=== PATIENT | male | born 1945 | race Caucasian/White ===

== ENCOUNTER 2017-08-26 12:19 | Inpatient (IN) | payer OTHER ==
[~2017-08-26] VITALS: Ht 182.8 cm; Wt 118.6 kg
--- NOTE | ~2017-08-26 | EKG ---
[place], [place] ELECTROCARDIOGRAM REPORT NAME: CAROLYN ROCHE UNIT #: [id number] ROOM: 528 DOCTOR: СЕРГЕЙ DRAFT REPORT BIRTHDATE: [birth year] [facility] Test Date: 2017-08-26 Test Time: 12:25:51 Pat Name: CAROLYN ROCHE Department: Room: Gender: Supervisor [employer]: : [id number] Requested By: GIL GRUBBS Order Number: [id number] Reading MD: Jose Coffman MD Measurements Intervals [place] Rate: 80 P: 24 NM: 200 QRS: -4 QRSD: 101 T: 30 QT: 371 QTc: 428 Interpretive Statements Sinus rhythm Baseline wander in lead(s) V5 Electronically Signed On 08-26-2017 12:53:58 PDT by Jose Coffman MD CM:EKGRPT:ELECTROCARDIOGRAM REPORT [id number] GIL INIGUEZ DRAFT REPORT GIL GRUBBS DO
[~2017-08-26 12:19] MED LIST: ALENDRONATE SOD70 M1 PO; ALLOPURINOL100 MG PO; ASPI-COR81 M1 PO; BUSPIRONE10 MG PO; DIFLUCAN100 MG PO; DIVALPROEX SOD250 M1 PO; FINASTERIDE5 MG PO; GLUCOPHAGE1000 MG PO; GLYBURIDE5 MG PO; ICAPS MV TABLE1 EACH PO; KEFLEX500 M1 PO; LASIX20 MG PO; LEVOTHYROXIN0.025 MG PO; LIDODERM 5% PATC1 EA PO; LISINOPRIL20 MG PO; LISINOPRIL40 MG PO; MOTRIN600 MG PO; MOTRIN800 MG PO; NEURONTIN400 MG PO; NOVOLOG10 ML SC; OMEPRAZOLE DR20 MG PO; OPTIVE SENSITI0.4 ML OP; PERCOCET 325 MG1 TA2 PO; POTASSIUM CHLO10 ME5 PO; PRAZOSIN HCL2 MG PO; SERTRALINE HCL100 MG PO; SIMVASTATIN80 MG PO; TRAMADOL HCL50 MG PO
[2017-08-26 12:26] VITALS: BP 121/61
[2017-08-26 13:01] LABS: ACT PARTIAL THROMBO TIME 19.1 SECONDS (20.8-31.5); INTERNATIONAL NORM RATIO 0.9 (2.0-3.5)
[2017-08-26 13:08] VITALS: BP 112/63
[2017-08-26 13:08] LABS: ALBUMIN 3.7 gm/dl (3.1-4.5); ALKALINE PHOSPHATASE 84 U/L (45-117); BUN 21 mg/dl (7-24); CHLORIDE 111 mmol/L (98-107); CREATININE 1.14 mg/dL (0.70-1.30); LIPASE 209 U/L (73-393); POTASSIUM 4.7 mmol/L (3.5-5.1); SGOT/AST 13 IU/L (3-35); SGPT/ALT 20 U/L (12-78); SODIUM 142 mmol/L (136-145); TOTAL PROTEIN 7.3 gm/dL (6.4-8.2); TROPONIN I < 0.015 ng/ml (<0.045)
[2017-08-26 13:22] LABS: BASO # 0.1 10*3/uL (0.0-0.1); BASO % 0.7 % (0.0-1.0); EOS # 0.1 10*3/uL (0.0-0.4); EOS % 0.9 % (1.0-4.0); HEMATOCRIT 41.2 % (42.0-52.0); HEMOGLOBIN 13.4 g/dl (14.0-18.0); LYMPH # 1.7 10*3/uL (1.3-4.4); LYMPH % 22.3 % (27.0-41.0); MEAN CELL VOLUME 92.8 fl (80.0-94.0); MEAN CORPUSCULAR HGB 30.2 pg (27.0-31.0); MEAN CORPUSCULAR HGB CONC 32.5 g/dl (33.0-37.0); MEAN PLATELET VOLUME 8.8 fl (9.6-12.3); MONO # 0.5 10*3/uL (0.1-1.0); MONO % 6.8 % (3.0-9.0); NEUT # 5.2 10*3/uL (2.3-7.9); NEUT % 68.6 % (47.0-73.0); PLATELET COUNT AUTOMATED 158 10*3/uL (130-400); RED BLOOD COUNT 4.44 10*6/uL (4.50-5.90); RED CELL DISTRI WIDTH 14.5 % (0-14.5); WHITE BLOOD COUNT 7.6 10*3/uL (4.8-10.8)
[2017-08-26 14:30] LABS: BILIRUBIN NEGATIVE (NEGATIVE); BLOOD NEGATIVE (NEGATIVE); CLARITY CLEAR (CLEAR); COLOR YELLOW (YELLOW); GLUCOSE NEGATIVE (NEGATIVE); KETONE TRACE (NEGATIVE); LEUKO ESTERASE NEGATIVE (NEGATIVE); NITRITE NEGATIVE (NEGATIVE); PH 5.5 (5.0-9.0); SPECIFIC GRAVITY 1.025 (1.005-1.030); UROBILINOGEN 0.2 E.U./dl (0.2-1.0)
[2017-08-26 14:56] LABS: EPITHELIAL CELLS 0-2; WBC 0-2 wbc/hpf (0-5)
[2017-08-26 16:32] VITALS: BP 129/69
[2017-08-26] MEDS ORDERED: SINGULAIR10 M1 PO (17:15)
[2017-08-26] MEDS ORDERED: K-TAB10 MEQ PO (17:17)
[2017-08-26] MEDS ORDERED: GLUCOTROL10 MG PO (17:18)
[2017-08-26] MEDS ORDERED: WELLBUTRIN XL300 MG PO (17:20)
[2017-08-26 20:00] VITALS: BP 130/70
[2017-08-27] VITALS: BP 151/69
[2017-08-27 06:08] LABS: BUN 18 mg/dl (7-24); CHLORIDE 109 mmol/L (98-107); CHOLESTEROL 124 mg/dL (<200); CREATININE 0.92 mg/dL (0.70-1.30); HDL CHOLESTEROL 39 mg/dl (40-60); LDL CHOLESTEROL 58 mg/dL (9-159); PHOSPHOROUS 3.2 mg/dL (2.5-4.9); POTASSIUM 4.1 mmol/L (3.5-5.1); SODIUM 141 mmol/L (136-145); TRIGLYCERIDES 137 mg/dl (<150); VLDL CHOLESTEROL 27 mg/dL (6-40)
[2017-08-27 06:09] LABS: BASO % 0.6 % (0.0-1.0); EOS # 0.1 10*3/uL (0.0-0.4); EOS % 1.3 % (1.0-4.0); HEMATOCRIT 40.2 % (42.0-52.0); HEMOGLOBIN 13.1 g/dl (14.0-18.0); LYMPH # 1.6 10*3/uL (1.3-4.4); LYMPH % 23.5 % (27.0-41.0); MEAN CELL VOLUME 92.4 fl (80.0-94.0); MEAN CORPUSCULAR HGB 30.1 pg (27.0-31.0); MEAN CORPUSCULAR HGB CONC 32.6 g/dl (33.0-37.0); MEAN PLATELET VOLUME 9.5 fl (9.6-12.3); MONO # 0.5 10*3/uL (0.1-1.0); MONO % 7.1 % (3.0-9.0); NEUT # 4.5 10*3/uL (2.3-7.9); NEUT % 66.9 % (47.0-73.0); PLATELET COUNT AUTOMATED 137 10*3/uL (130-400); RED BLOOD COUNT 4.35 10*6/uL (4.50-5.90); RED CELL DISTRI WIDTH 14.4 % (0-14.5); WHITE BLOOD COUNT 6.8 10*3/uL (4.8-10.8)
[2017-08-27 06:27] LABS: TROPONIN I < 0.015 ng/ml (<0.045)
[2017-08-27 08:39] LABS: VITAMIN D, 25-HYDROXY 24.1 ng/mL (30-100)
[2017-08-27 12:00] VITALS: BP 133/70
[2017-08-27 16:00] VITALS: BP 142/76
[2017-08-27 20:00] VITALS: BP 143/80
[2017-08-28] VITALS: BP 129/84
[2017-08-28 07:48] LABS: BASO # 0.1 10*3/uL (0.0-0.1); BASO % 0.7 % (0.0-1.0); EOS # 0.1 10*3/uL (0.0-0.4); EOS % 1.4 % (1.0-4.0); HEMATOCRIT 41.7 % (42.0-52.0); HEMOGLOBIN 13.6 g/dl (14.0-18.0); LYMPH # 1.5 10*3/uL (1.3-4.4); LYMPH % 21.6 % (27.0-41.0); MEAN CELL VOLUME 91.9 fl (80.0-94.0); MEAN CORPUSCULAR HGB CONC 32.6 g/dl (33.0-37.0); MEAN PLATELET VOLUME 9.7 fl (9.6-12.3); MONO # 0.4 10*3/uL (0.1-1.0); MONO % 6.1 % (3.0-9.0); NEUT # 4.9 10*3/uL (2.3-7.9); NEUT % 69.6 % (47.0-73.0); PLATELET COUNT AUTOMATED 151 10*3/uL (130-400); RED BLOOD COUNT 4.54 10*6/uL (4.50-5.90); RED CELL DISTRI WIDTH 14.1 % (0-14.5); WHITE BLOOD COUNT 7.1 10*3/uL (4.8-10.8)
[2017-08-28 08:03] LABS: BUN 15 mg/dl (7-24); CHLORIDE 110 mmol/L (98-107); CREATININE 0.89 mg/dL (0.70-1.30); POTASSIUM 4.3 mmol/L (3.5-5.1); SODIUM 138 mmol/L (136-145)
[2017-08-28] MEDS ORDERED: LASIX20 MG PO (10:19)
== END 2017-08-28 10:40 | disposition home or self-care (01) | DRG 312 ==
LOC: ED 12:19 → 5E 15:30 → EDHOLD 15:30 → 5E 15:48
PROVIDERS: Emergency Medicine; Internal Medicine; Student in an Organized Health Care Education/Training Program
DX: I95.1 Orthostatic hypotension (principal); E11.42 Type 2 diabetes mellitus with diabetic polyneuropathy; E11.51 Type 2 diabetes mellitus with diabetic peripheral angiopathy without gangrene; I50.30 Unspecified diastolic (congestive) heart failure; E87.8 Other disorders of electrolyte and fluid balance, not elsewhere classified; R26.81 Unsteadiness on feet; R29.6 Repeated falls; D72.810 Lymphocytopenia; D64.9 Anemia, unspecified; F43.10 Post-traumatic stress disorder, unspecified; E11.69 Type 2 diabetes mellitus with other specified complication; E78.5 Hyperlipidemia, unspecified; E03.9 Hypothyroidism, unspecified; M81.0 Age-related osteoporosis without current pathological fracture; G47.33 Obstructive sleep apnea (adult) (pediatric); I11.0 Hypertensive heart disease with heart failure; Z79.84 Long term (current) use of oral hypoglycemic drugs; Z79.4 Long term (current) use of insulin; Z79.82 Long term (current) use of aspirin; Z82.49 Family history of ischemic heart disease and other diseases of the circulatory system; Z83.3 Family history of diabetes mellitus; Z80.9 Family history of malignant neoplasm, unspecified

== ENCOUNTER 2018-10-21 10:26 | Emergency (ER) | payer OTHER ==
[~2018-10-21] VITALS: Wt 115.7 kg
[~2018-10-21 10:26] MED LIST changes: +GLUCOTROL10 MG PO; +K-TAB10 MEQ PO; +SINGULAIR10 M1 PO; +WELLBUTRIN XL300 MG PO
[2018-10-21 10:29] VITALS: BP 130/65
[2018-10-21 10:55] LABS: BASO # 0.1 10*3/uL (0.0-0.1); BASO % 0.6 % (0.0-1.0); EOS # 0.1 10*3/uL (0.0-0.4); EOS % 0.6 % (1.0-4.0); HEMATOCRIT 42.9 % (42.0-52.0); HEMOGLOBIN 14.2 g/dl (14.0-18.0); LYMPH # 1.8 10*3/uL (1.3-4.4); LYMPH % 21.7 % (27.0-41.0); MEAN CELL VOLUME 93.3 fl (80.0-94.0); MEAN CORPUSCULAR HGB 30.9 pg (27.0-31.0); MEAN CORPUSCULAR HGB CONC 33.1 g/dl (33.0-37.0); MONO # 0.5 10*3/uL (0.1-1.0); MONO % 5.9 % (3.0-9.0); NEUT # 5.7 10*3/uL (2.3-7.9); NEUT % 70.8 % (47.0-73.0); PLATELET COUNT AUTOMATED 168 10*3/uL (130-400); RED CELL DISTRI WIDTH 13.9 % (0-14.5); WHITE BLOOD COUNT 8.1 10*3/uL (4.8-10.8)
[2018-10-21 11:07] LABS: ACT PARTIAL THROMBO TIME 25.4 SECONDS (20.0-32.1); INTERNATIONAL NORM RATIO 0.9 (2.0-3.5)
[2018-10-21 11:09] LABS: ALBUMIN 3.6 gm/dl (3.1-4.5); ALKALINE PHOSPHATASE 69 U/L (45-117); BUN 23 mg/dl (7-24); CHLORIDE 105 mmol/L (98-107); CREATININE 1.12 mg/dL (0.70-1.30); POTASSIUM 4.4 mmol/L (3.5-5.1); SGOT/AST 10 IU/L (3-35); SGPT/ALT 21 U/L (12-78); SODIUM 138 mmol/L (136-145); TOTAL PROTEIN 7.1 gm/dL (6.4-8.2)
== END 2018-10-21 12:20 | disposition home or self-care (01) ==
LOC: ED 10:26
PROVIDERS: Emergency Medicine
DX: H53.2 Diplopia (principal); I11.0 Hypertensive heart disease with heart failure; I50.9 Heart failure, unspecified; E03.9 Hypothyroidism, unspecified; G47.33 Obstructive sleep apnea (adult) (pediatric); E11.42 Type 2 diabetes mellitus with diabetic polyneuropathy; Z87.891 Personal history of nicotine dependence; Z95.5 Presence of coronary angioplasty implant and graft; Z79.82 Long term (current) use of aspirin; Z79.899 Other long term (current) drug therapy

== ENCOUNTER → 2019-12-23 | Outpatient (CLI) | payer OTHER | END | disposition home or self-care (01) | LOC: MRI 12:33 | PROVIDERS: ATTEND Nurse Practitioner Family | DX: M54.5 Low back pain (principal); R15.9 Full incontinence of feces ==

== ENCOUNTER 2020-11-15 09:50 | Emergency (ER) | payer OTHER ==
[~2020-11-15] VITALS: Ht 182.8 cm; Wt 108.9 kg
[2020-11-15 10:10] VITALS: BP 140/79
[2020-11-15 10:52] LABS: BASO % 0.4 % (0.0-1.0); EOS # 0.1 10*3/uL (0.0-0.4); EOS % 1.3 % (1.0-4.0); LYMPH # 1.4 10*3/uL (1.3-4.4); LYMPH % 15.4 % (27.0-41.0); MEAN CELL VOLUME 92.9 fl (80.0-94.0); MEAN CORPUSCULAR HGB 30.8 pg (27.0-31.0); MEAN CORPUSCULAR HGB CONC 33.1 g/dl (33.0-37.0); MEAN PLATELET VOLUME 8.9 fl (9.6-12.3); MONO # 0.8 10*3/uL (0.1-1.0); MONO % 8.2 % (3.0-9.0); NEUT # 6.8 10*3/uL (2.3-7.9); NEUT % 74.2 % (47.0-73.0); PLATELET COUNT AUTOMATED 155 10*3/uL (130-400); RED BLOOD COUNT 4.52 10*6/uL (4.50-5.90); RED CELL DISTRI WIDTH 14.1 % (0-14.5); WHITE BLOOD COUNT 9.2 10*3/uL (4.8-10.8)
[2020-11-15 11:04] LABS: ACT PARTIAL THROMBO TIME 26.1 SECONDS (20.0-32.1)
[2020-11-15 11:06] LABS: ALBUMIN 3.2 gm/dl (3.1-4.5); ALKALINE PHOSPHATASE 88 U/L (45-117); BUN 17 mg/dl (7-24); CHLORIDE 106 mmol/L (98-107); CREATININE 0.95 mg/dL (0.70-1.30); LIPASE 128 U/L (73-393); POTASSIUM 4.1 mmol/L (3.5-5.1); SGOT/AST 18 IU/L (3-35); SGPT/ALT 28 U/L (12-78); SODIUM 138 mmol/L (136-145); TOTAL PROTEIN 7.1 gm/dL (6.4-8.2)
[2020-11-15 11:16] LABS: TROPONIN I < 0.015 ng/ml (<0.045)
[2020-11-15 12:48] LABS: BILIRUBIN Negative (Negative); BLOOD Negative (Negative); CLARITY Clear (Clear); COLOR Yellow (Yellow); GLUCOSE Negative (Negative); KETONE Trace (Negative); LEUKO ESTERASE Negative (Negative); NITRITE Negative (Negative); PH 5.5 (4.5-8.0); SPECIFIC GRAVITY 1.025 (1.001-1.030)
[2020-11-15 12:55] LABS: BACTERIA TRACE; EPITHELIAL CELLS 0-2; RBC 0-2 rbc/hpf (0-2); WBC 0-2 wbc/hpf (0-5)
== END 2020-11-15 15:30 | disposition home or self-care (01) ==
LOC: ED 09:50
PROVIDERS: Emergency Medicine
DX: S50.812A Abrasion of left forearm, initial encounter (principal); Z79.899 Other long term (current) drug therapy; Z79.82 Long term (current) use of aspirin; Z87.891 Personal history of nicotine dependence; W18.39XA Other fall on same level, initial encounter; Y93.89 Activity, other specified; Y92.89 Other specified places as the place of occurrence of the external cause; Y99.8 Other external cause status

== ENCOUNTER 2021-02-28 19:31 | Inpatient (IN) | payer OTHER ==
[~2021-02-28] VITALS: Ht 182.9 cm; Wt 100.8 kg
[2021-02-28 19:35] VITALS: BP 100/59
[2021-02-28 20:08] LABS: HEMATOCRIT 34.8 % (42.0-52.0); MEAN CELL VOLUME 91.1 fl (80.0-94.0); MEAN CORPUSCULAR HGB 29.8 pg (27.0-31.0); MEAN CORPUSCULAR HGB CONC 32.8 g/dl (33.0-37.0); MEAN PLATELET VOLUME 8.9 fl (9.6-12.3); PLATELET COUNT AUTOMATED 198 10*3/uL (130-400); RED BLOOD COUNT 3.82 10*6/uL (4.50-5.90); WHITE BLOOD COUNT 14.8 10*3/uL (4.8-10.8)
[2021-02-28 20:24] LABS: ALBUMIN 2.7 gm/dl (3.1-4.5); ALKALINE PHOSPHATASE 100 U/L (45-117); BUN 27 mg/dl (7-24); CHLORIDE 104 mmol/L (98-107); CREATININE 1.35 mg/dL (0.70-1.30); SGOT/AST 41 IU/L (3-35); SGPT/ALT 26 U/L (12-78); SODIUM 135 mmol/L (136-145); TOTAL PROTEIN 6.6 gm/dL (6.4-8.2)
[2021-02-28 20:25] LABS: TOTAL CELLS COUNTED 100 #CELLS
[2021-02-28 20:26] LABS: ACT PARTIAL THROMBO TIME 32.2 SECONDS (20.0-32.1); INTERNATIONAL NORM RATIO 1.1 (2.0-3.5); PLATELET SUFFICIENCY NORMAL (NORMAL)
[2021-02-28 20:44] LABS: ARTERIAL BLOOD GAS PH 7.39 (7.35-7.45)
[2021-02-28 23:00] VITALS: BP 120/70
[2021-03-01] VITALS (11 sets, daily range): BP systolic 107–139; BP diastolic 59–94
[2021-03-01 02:42] LABS: HEMATOCRIT 33.8 % (42.0-52.0); MEAN CELL VOLUME 90.9 fl (80.0-94.0); MEAN CORPUSCULAR HGB 29.8 pg (27.0-31.0); MEAN CORPUSCULAR HGB CONC 32.8 g/dl (33.0-37.0); MEAN PLATELET VOLUME 8.4 fl (9.6-12.3); PLATELET COUNT AUTOMATED 176 10*3/uL (130-400); RED BLOOD COUNT 3.72 10*6/uL (4.50-5.90); RED CELL DISTRI WIDTH 14.9 % (0-14.5); WHITE BLOOD COUNT 11.1 10*3/uL (4.8-10.8)
[2021-03-01 02:53] LABS: INTERNATIONAL NORM RATIO 1.1 (2.0-3.5)
[2021-03-01 03:06] LABS: PLATELET SUFFICIENCY NORMAL (NORMAL); TOTAL CELLS COUNTED 100 #CELLS
[2021-03-01 03:24] LABS: ALBUMIN 2.5 gm/dl (3.1-4.5); ALKALINE PHOSPHATASE 92 U/L (45-117); BUN 24 mg/dl (7-24); CHLORIDE 110 mmol/L (98-107); CHOLESTEROL 102 mg/dL (<200); FREE T4 0.96 ng/dl (0.76-1.46); LDL CHOLESTEROL 24 mg/dL (9-159); POTASSIUM 4.4 mmol/L (3.5-5.1); SGOT/AST 44 IU/L (3-35); SGPT/ALT 27 U/L (12-78); SODIUM 141 mmol/L (136-145); TOTAL PROTEIN 6.3 gm/dL (6.4-8.2); TRIGLYCERIDES 71 mg/dl (<150)
[2021-03-01 03:28] LABS: BILIRUBIN Negative (Negative); BLOOD 2+ (Negative); CLARITY Clear (Clear); COLOR Yellow (Yellow); GLUCOSE Negative (Negative); KETONE Trace (Negative); LEUKO ESTERASE Negative (Negative); NITRITE Negative (Negative); SPECIFIC GRAVITY 1.025 (1.001-1.030)
[2021-03-01 03:30] LABS: THYROID STIM HORMONE (HS) 0.787 uIU/ml (0.358-4.75)
[2021-03-01 03:45] LABS: BACTERIA 2+; RBC 16-20 rbc/hpf (0-2)
[2021-03-01] MEDS ORDERED: LOSARTAN POTASS50 M1 PO (15:19)
[2021-03-01] MEDS ORDERED: LAMOTRIGINE100 MG PO (15:24)
[2021-03-01] MEDS ORDERED: NORTRIPTYLINE H50 MG PO (15:27)
[2021-03-01] MEDS ORDERED: B121000 MCG/2 PO (15:30)
[2021-03-01] MEDS ORDERED: VITAMIN D350 MC3 PO (15:31)
[2021-03-02] VITALS: BP 140/71
[2021-03-02 06:03] LABS: HEMATOCRIT 33.4 % (42.0-52.0); LYMPH # 0.7 10*3/uL (1.3-4.4); LYMPH % 9.7 % (27.0-41.0); MEAN CELL VOLUME 91.5 fl (80.0-94.0); MEAN CORPUSCULAR HGB 29.9 pg (27.0-31.0); MEAN CORPUSCULAR HGB CONC 32.6 g/dl (33.0-37.0); MEAN PLATELET VOLUME 8.8 fl (9.6-12.3); MONO # 0.3 10*3/uL (0.1-1.0); MONO % 4.5 % (3.0-9.0); NEUT # 5.9 10*3/uL (2.3-7.9); NEUT % 85.4 % (47.0-73.0); PLATELET COUNT AUTOMATED 189 10*3/uL (130-400); RED BLOOD COUNT 3.65 10*6/uL (4.50-5.90); RED CELL DISTRI WIDTH 14.9 % (0-14.5); WHITE BLOOD COUNT 6.9 10*3/uL (4.8-10.8)
[2021-03-02 06:10] LABS: ALBUMIN 2.5 gm/dl (3.1-4.5); ALKALINE PHOSPHATASE 95 U/L (45-117); BUN 22 mg/dl (7-24); CHLORIDE 109 mmol/L (98-107); CREATININE 0.74 mg/dL (0.70-1.30); SGOT/AST 55 IU/L (3-35); SGPT/ALT 25 U/L (12-78); SODIUM 140 mmol/L (136-145); TOTAL PROTEIN 6.5 gm/dL (6.4-8.2)
[2021-03-02 08:00] VITALS: BP 154/65
[2021-03-02 12:00] VITALS: BP 146/98
[2021-03-02 16:00] VITALS: BP 154/80
[2021-03-02 20:00] VITALS: BP 156/76
[2021-03-03] VITALS: BP 145/69
[2021-03-03 05:46] LABS: BUN 20 mg/dl (7-24); CHLORIDE 111 mmol/L (98-107); SODIUM 143 mmol/L (136-145)
[2021-03-03 05:47] LABS: CREATININE 0.73 mg/dL (0.70-1.30)
[2021-03-03 06:22] LABS: HEMATOCRIT 32.7 % (42.0-52.0); LYMPH # 0.7 10*3/uL (1.3-4.4); LYMPH % 11.4 % (27.0-41.0); MEAN CELL VOLUME 92.4 fl (80.0-94.0); MEAN CORPUSCULAR HGB 29.4 pg (27.0-31.0); MEAN CORPUSCULAR HGB CONC 31.8 g/dl (33.0-37.0); MEAN PLATELET VOLUME 8.8 fl (9.6-12.3); MONO # 0.3 10*3/uL (0.1-1.0); NEUT # 4.8 10*3/uL (2.3-7.9); NEUT % 83.1 % (47.0-73.0); PLATELET COUNT AUTOMATED 208 10*3/uL (130-400); RED BLOOD COUNT 3.54 10*6/uL (4.50-5.90); RED CELL DISTRI WIDTH 14.9 % (0-14.5); WHITE BLOOD COUNT 5.8 10*3/uL (4.8-10.8)
[2021-03-03 08:00] VITALS: BP 131/64
[2021-03-03 12:00] VITALS: BP 157/89
[2021-03-03 16:00] VITALS: BP 146/64
[2021-03-03 20:00] VITALS: BP 172/79
[2021-03-04] VITALS: BP 149/78
[2021-03-04 01:08] LABS: ABG BASE EXCESS 3.1 mmol/L (-2.0-2.0); ARTERIAL BLOOD GAS PH 7.458 (7.35-7.45); ARTERIAL BLOOD GAS PO2 54.5 (80-90)
[2021-03-04 06:15] LABS: BASO % 0.2 % (0.0-1.0); EOS % 0.2 % (1.0-4.0); LYMPH # 0.7 10*3/uL (1.3-4.4); LYMPH % 13.9 % (27.0-41.0); MEAN CELL VOLUME 91.4 fl (80.0-94.0); MEAN CORPUSCULAR HGB CONC 32.8 g/dl (33.0-37.0); MEAN PLATELET VOLUME 8.7 fl (9.6-12.3); MONO # 0.4 10*3/uL (0.1-1.0); MONO % 7.9 % (3.0-9.0); NEUT # 4.1 10*3/uL (2.3-7.9); NEUT % 77.2 % (47.0-73.0); PLATELET COUNT AUTOMATED 206 10*3/uL (130-400); RED CELL DISTRI WIDTH 14.7 % (0-14.5); WHITE BLOOD COUNT 5.3 10*3/uL (4.8-10.8)
[2021-03-04 06:20] LABS: BUN 18 mg/dl (7-24); CHLORIDE 113 mmol/L (98-107); CREATININE 0.73 mg/dL (0.70-1.30); POTASSIUM 3.9 mmol/L (3.5-5.1); SODIUM 144 mmol/L (136-145)
[2021-03-04 08:00] VITALS: BP 147/81; BP 151/80
[2021-03-04 12:00] VITALS: BP 147/55
[2021-03-04 16:00] VITALS: BP 148/69
[2021-03-05] VITALS: BP 154/81
[2021-03-05 05:46] LABS: BUN 20 mg/dl (7-24); CHLORIDE 111 mmol/L (98-107); POTASSIUM 4.4 mmol/L (3.5-5.1); SODIUM 145 mmol/L (136-145)
[2021-03-05 06:08] LABS: BASO % 0.2 % (0.0-1.0); EOS % 0.2 % (1.0-4.0); HEMATOCRIT 33.8 % (42.0-52.0); LYMPH # 0.8 10*3/uL (1.3-4.4); LYMPH % 13.2 % (27.0-41.0); MEAN CELL VOLUME 91.8 fl (80.0-94.0); MEAN CORPUSCULAR HGB 29.6 pg (27.0-31.0); MEAN CORPUSCULAR HGB CONC 32.2 g/dl (33.0-37.0); MEAN PLATELET VOLUME 8.9 fl (9.6-12.3); MONO # 0.4 10*3/uL (0.1-1.0); MONO % 7.2 % (3.0-9.0); NEUT # 4.6 10*3/uL (2.3-7.9); NEUT % 78.2 % (47.0-73.0); PLATELET COUNT AUTOMATED 229 10*3/uL (130-400); RED BLOOD COUNT 3.68 10*6/uL (4.50-5.90); RED CELL DISTRI WIDTH 14.6 % (0-14.5); WHITE BLOOD COUNT 5.8 10*3/uL (4.8-10.8)
[2021-03-05 09:04] VITALS: BP 180/82
[2021-03-05 09:40] VITALS: BP 150/72
[2021-03-05 11:49] VITALS: BP 157/81
[2021-03-05 16:00] VITALS: BP 156/76
[2021-03-05 20:00] VITALS: BP 160/92
[2021-03-06] VITALS: BP 156/74; BP 188/91
[2021-03-06 05:53] LABS: BUN 21 mg/dl (7-24); CHLORIDE 112 mmol/L (98-107); CREATININE 0.84 mg/dL (0.70-1.30); POTASSIUM 4.1 mmol/L (3.5-5.1); SODIUM 146 mmol/L (136-145)
[2021-03-06 06:06] LABS: BASO % 0.2 % (0.0-1.0); EOS # 0.1 10*3/uL (0.0-0.4); EOS % 0.9 % (1.0-4.0); HEMATOCRIT 35.1 % (42.0-52.0); LYMPH # 0.7 10*3/uL (1.3-4.4); LYMPH % 10.7 % (27.0-41.0); MEAN CELL VOLUME 93.6 fl (80.0-94.0); MEAN CORPUSCULAR HGB 29.6 pg (27.0-31.0); MEAN CORPUSCULAR HGB CONC 31.6 g/dl (33.0-37.0); MONO # 0.4 10*3/uL (0.1-1.0); MONO % 6.7 % (3.0-9.0); NEUT # 5.3 10*3/uL (2.3-7.9); NEUT % 80.1 % (47.0-73.0); PLATELET COUNT AUTOMATED 273 10*3/uL (130-400); RED BLOOD COUNT 3.75 10*6/uL (4.50-5.90); RED CELL DISTRI WIDTH 14.6 % (0-14.5); WHITE BLOOD COUNT 6.6 10*3/uL (4.8-10.8)
[2021-03-06 08:00] VITALS: BP 170/86
[2021-03-06 12:00] VITALS: BP 115/64
[2021-03-06 16:00] VITALS: BP 98/56
[2021-03-06 20:00] VITALS: BP 105/65
[2021-03-07] VITALS: BP 141/70
[2021-03-07 06:14] LABS: BASO % 0.1 % (0.0-1.0); EOS % 0.2 % (1.0-4.0); HEMATOCRIT 33.9 % (42.0-52.0); LYMPH # 0.9 10*3/uL (1.3-4.4); LYMPH % 9.6 % (27.0-41.0); MEAN CELL VOLUME 91.1 fl (80.0-94.0); MEAN CORPUSCULAR HGB 29.6 pg (27.0-31.0); MEAN CORPUSCULAR HGB CONC 32.4 g/dl (33.0-37.0); MEAN PLATELET VOLUME 9.2 fl (9.6-12.3); MONO # 0.5 10*3/uL (0.1-1.0); MONO % 5.3 % (3.0-9.0); NEUT # 8.2 10*3/uL (2.3-7.9); NEUT % 83.7 % (47.0-73.0); PLATELET COUNT AUTOMATED 302 10*3/uL (130-400); RED BLOOD COUNT 3.72 10*6/uL (4.50-5.90); RED CELL DISTRI WIDTH 14.7 % (0-14.5); WHITE BLOOD COUNT 9.8 10*3/uL (4.8-10.8)
[2021-03-07 06:57] LABS: BUN 31 mg/dl (7-24); CHLORIDE 115 mmol/L (98-107); CREATININE 0.98 mg/dL (0.70-1.30); POTASSIUM 3.6 mmol/L (3.5-5.1); SODIUM 147 mmol/L (136-145)
[2021-03-07 09:00] VITALS: BP 128/61
[2021-03-07 12:00] VITALS: BP 128/62; BP 136/64
[2021-03-07 16:00] VITALS: BP 134/61
[2021-03-07 20:00] VITALS: BP 143/76
[2021-03-08] VITALS: BP 106/91; BP 131/66
[2021-03-08 06:14] LABS: BASO % 0.1 % (0.0-1.0); EOS # 0.1 10*3/uL (0.0-0.4); EOS % 0.5 % (1.0-4.0); HEMATOCRIT 33.4 % (42.0-52.0); LYMPH # 0.7 10*3/uL (1.3-4.4); LYMPH % 7.5 % (27.0-41.0); MEAN CELL VOLUME 93.3 fl (80.0-94.0); MEAN CORPUSCULAR HGB 29.3 pg (27.0-31.0); MEAN CORPUSCULAR HGB CONC 31.4 g/dl (33.0-37.0); MEAN PLATELET VOLUME 9.4 fl (9.6-12.3); MONO # 0.5 10*3/uL (0.1-1.0); MONO % 5.1 % (3.0-9.0); NEUT # 8.4 10*3/uL (2.3-7.9); NEUT % 85.8 % (47.0-73.0); PLATELET COUNT AUTOMATED 324 10*3/uL (130-400); RED BLOOD COUNT 3.58 10*6/uL (4.50-5.90); RED CELL DISTRI WIDTH 14.8 % (0-14.5); WHITE BLOOD COUNT 9.8 10*3/uL (4.8-10.8)
[2021-03-08 06:22] LABS: BUN 27 mg/dl (7-24); CHLORIDE 117 mmol/L (98-107); SODIUM 152 mmol/L (136-145)
[2021-03-08 06:26] LABS: ALKALINE PHOSPHATASE 107 U/L (45-117); LDH 449 U/L (87-241); SGOT/AST 45 IU/L (3-35); SGPT/ALT 33 U/L (12-78); TOTAL PROTEIN 6.5 gm/dL (6.4-8.2)
[2021-03-08 08:00] VITALS: BP 155/77
[2021-03-08 08:50] VITALS: BP 133/74
[2021-03-08 12:00] VITALS: BP 105/68
[2021-03-08 16:00] VITALS: BP 105/84
[2021-03-08 20:00] VITALS: BP 117/43
[2021-03-09] VITALS: BP 116/80
[2021-03-09 06:43] LABS: BASO % 0.3 % (0.0-1.0); EOS # 0.1 10*3/uL (0.0-0.4); EOS % 1.1 % (1.0-4.0); HEMATOCRIT 35.5 % (42.0-52.0); LYMPH # 0.8 10*3/uL (1.3-4.4); LYMPH % 8.3 % (27.0-41.0); MEAN CELL VOLUME 93.4 fl (80.0-94.0); MEAN CORPUSCULAR HGB 29.5 pg (27.0-31.0); MEAN CORPUSCULAR HGB CONC 31.5 g/dl (33.0-37.0); MEAN PLATELET VOLUME 9.3 fl (9.6-12.3); MONO # 0.4 10*3/uL (0.1-1.0); MONO % 4.8 % (3.0-9.0); NEUT # 7.6 10*3/uL (2.3-7.9); NEUT % 84.3 % (47.0-73.0); PLATELET COUNT AUTOMATED 316 10*3/uL (130-400); RED CELL DISTRI WIDTH 14.9 % (0-14.5)
[2021-03-09 06:49] LABS: ALBUMIN 2.2 gm/dl (3.1-4.5); ALKALINE PHOSPHATASE 108 U/L (45-117); BUN 25 mg/dl (7-24); CHLORIDE 117 mmol/L (98-107); CREATININE 0.83 mg/dL (0.70-1.30); LDH 386 U/L (87-241); POTASSIUM 3.7 mmol/L (3.5-5.1); SGOT/AST 39 IU/L (3-35); SGPT/ALT 37 U/L (12-78); SODIUM 151 mmol/L (136-145); TOTAL PROTEIN 6.8 gm/dL (6.4-8.2)
[2021-03-09 09:38] VITALS: BP 141/118
[2021-03-09 12:00] VITALS: BP 151/115
== END 2021-03-09 16:17 | disposition hospice, inpatient (51) | DRG 871 ==
LOC: ED 19:31 → EDHOLD 22:44 → 4E 22:44
PROVIDERS: Emergency Medicine; Hospitalist; Internal Medicine; Internal Medicine Critical Care Medicine; ADMIT Internal Medicine; ATTEND Internal Medicine
PROC: 5A0935A Assistance with Respiratory Ventilation, Less than 24 Consecutive Hours, High Flow/Velocity Cannula (ICD-10-PCS; 2021-02-28)
PROC: XW033E5 Introduction of Remdesivir Anti-infective into Peripheral Vein, Percutaneous Approach, New Technology Group 5 (ICD-10-PCS; principal; 2021-03-02)
PROC: 5A0935A Assistance with Respiratory Ventilation, Less than 24 Consecutive Hours, High Flow/Velocity Cannula (ICD-10-PCS; 2021-03-02)
PROC: 5A09357 Assistance with Respiratory Ventilation, Less than 24 Consecutive Hours, Continuous Positive Airway Pressure (ICD-10-PCS; 2021-03-04)
PROC: 5A0935A Assistance with Respiratory Ventilation, Less than 24 Consecutive Hours, High Flow/Velocity Cannula (ICD-10-PCS; 2021-03-05)
PROC: 5A09357 Assistance with Respiratory Ventilation, Less than 24 Consecutive Hours, Continuous Positive Airway Pressure (ICD-10-PCS; 2021-03-05)
PROC: 5A09357 Assistance with Respiratory Ventilation, Less than 24 Consecutive Hours, Continuous Positive Airway Pressure (ICD-10-PCS; 2021-03-06)
PROC: 5A09457 Assistance with Respiratory Ventilation, 24-96 Consecutive Hours, Continuous Positive Airway Pressure (ICD-10-PCS; 2021-03-07)
DX: A41.9 Sepsis, unspecified organism (principal); U07.1 COVID-19; J96.01 Acute respiratory failure with hypoxia; N17.0 Acute kidney failure with tubular necrosis; G93.41 Metabolic encephalopathy; J12.82 Pneumonia due to coronavirus disease 2019; E87.1 Hypo-osmolality and hyponatremia; E44.0 Moderate protein-calorie malnutrition; E87.0 Hyperosmolality and hypernatremia; Z51.5 Encounter for palliative care; Z66 Do not resuscitate; R65.20 Severe sepsis without septic shock; E11.65 Type 2 diabetes mellitus with hyperglycemia; Z79.4 Long term (current) use of insulin; Z87.891 Personal history of nicotine dependence; Z68.30 Body mass index [BMI] 30.0-30.9, adult

== ENCOUNTER 2021-03-09 16:32 | Inpatient (IN) | payer OTHER ==
[~2021-03-09] VITALS: Ht 182.9 cm; Wt 100.8 kg
[2021-03-09 16:18] VITALS: BP 89/46
[~2021-03-09 16:32] MED LIST changes: +B121000 MCG/2 PO; +LAMOTRIGINE100 MG PO; +LOSARTAN POTASS50 M1 PO; +NORTRIPTYLINE H50 MG PO; +VITAMIN D350 MC3 PO
[2021-03-09 20:00] VITALS: BP 135/72
== END 2021-03-10 01:19 | DRG 189 ==
LOC: 4E 16:32
PROVIDERS: ADMIT Internal Medicine; ATTEND Internal Medicine
PROC: 5A09357 Assistance with Respiratory Ventilation, Less than 24 Consecutive Hours, Continuous Positive Airway Pressure (ICD-10-PCS; principal; 2021-03-09)
DX: J96.01 Acute respiratory failure with hypoxia (principal); Z51.5 Encounter for palliative care; Z66 Do not resuscitate